=== PATIENT | female | born 1990 | race Two or more races ===

== ENCOUNTER 2020-06-21 19:49 | Emergency (ER) | payer OTHER ==
[~2020-06-21] VITALS: Ht 149.9 cm; Wt 65.8 kg
[2020-06-21 19:50] VITALS: BP 113/61
[2020-06-21 20:31] LABS: Urine Bacteria FEW /hpf (None Seen); Urine Blood Negative /uL (Negative); Urine Mucus FEW (None Seen); Urine Specific Gravity 1.029 (1.001-1.035); Urine WBC 10 /hpf (0 - 5)
== END 2020-06-21 22:16 | disposition left against medical advice (07) ==
LOC: ER 19:49
DX: R10.2 Pelvic and perineal pain (principal); Z53.21 Procedure and treatment not carried out due to patient leaving prior to being seen by health care provider
CPT/HCPCS: 81001; 81025

== ENCOUNTER 2020-07-15 00:44 | Inpatient (IN) | payer OTHER ==
[~2020-07-15] VITALS: Ht 149.9 cm; Wt 71.1 kg
[2020-07-15 01:38] LABS: Basophils # (auto) 0 10 ^3/uL (0-0.2); Basophils % (auto) 0.1 % (0.0-2.0); Eosinophils # (auto) 0 10 ^3/uL (0-0.8); Eosinophils % (auto) 0.1 % (0.0-7.0); Hematocrit 40.6 % (36.0-46.0); Hemoglobin 13.2 g/dL (12.2-16.2); Lymphocytes # (auto) 1.3 10 ^3/uL (0.4-5.4); Lymphocytes % (auto) 8.6 % (10.0-50.0); Mean Corpuscular Hemoglobin 27.7 pg (28.0-32.0); Mean Corpuscular Hgb Conc. 32.6 g/dL (32.0-36.0); Mean Corpuscular Volume 84.9 fL (80.0-100.0); Monocytes # (auto) 0.5 10 ^3/uL (0-1.3); Monocytes % (auto) 3.4 % (0.0-12.0); Neutrophils # (auto) 13.7 10 ^3/uL (1.6-8.6); Neutrophils % (auto) 87.8 % (37.0-80.0); Nucleated Red Blood Cells % 0.1 %; Platelet Count (auto) 244 10^3/uL (140-450); Red Blood Cells 4.78 10^6/uL (4.0-5.20); Red Cell Distribution Width 15.5 % (11.8-14.3); White Blood Cell 15.6 10^3/uL (4.4-10.8)
[2020-07-15 01:56] LABS: Albumin 3.9 g/dL (3.4-5.0); BUN/Creatinine Ratio 19.6; Calcium 8.7 mg/dL (8.5-10.1); Potassium 3.8 mmol/L (3.5-5.1)
[2020-07-15 01:59] LABS: Bilirubin, Total 0.4 mg/dL (0.2-1.0); Total Protein 7.5 g/dL (6.4-8.2)
[2020-07-15 02:06] LABS: Urine Bacteria NONE SEEN /hpf (None Seen); Urine Blood 3+ /uL (Negative); Urine Mucus FEW (None Seen); Urine Specific Gravity 1.028 (1.001-1.035); Urine WBC 18 /hpf (0 - 5)
[2020-07-15] MEDS ORDERED: HYDROcodone-ACET 7.5/325MG TAB PO ONE (04:15)
[2020-07-15 07:38] LABS: INR 1.05 (0.9-1.15); Partial Thromboplastin Time 28.8 sec (23.0-31.2)
[2020-07-15] MEDS ORDERED: ceFAZolin 1GM/50ML 50 ML IV ONE (12:05)
[2020-07-15] MEDS ORDERED: MEPERIDINE HCL (50 MG/ML) 1 ML VIAL ONE (13:11)
[2020-07-15] MEDS ORDERED: fentaNYL CITRATE 100 MCG/2 ML VL ONE ×2 (13:11→14:24)
[2020-07-15] MEDS ORDERED: MIDAZOLAM HCL 1MG/1ML-2 ML VIAL ONE (13:11)
[2020-07-15] MEDS ORDERED: MORPHINE SULFATE 4 MG/ML SYR/VIAL IV PRN (13:45)
[2020-07-15] MEDS ORDERED: LABETALOL HCL 5 MG/ML 4ML SYRINGE IV PRN (13:45)
[2020-07-15] MEDS ORDERED: PROPOFOL 10 MG/ML 20 ML IV ONE (13:45)
[2020-07-15] MEDS ORDERED: ONDANSETRON HCL 4 MG/2 ML VIAL ONE (13:45)
[2020-07-15] MEDS ORDERED: KETOROLAC TROMETH 30 MG/ML 1ML VIAL IV ONE (13:45)
[2020-07-15] MEDS ORDERED: DexAMETHasone SOD PHOS 10MG/1ML VIAL INJ ONE (13:45)
[2020-07-15] MEDS ORDERED: ePHEDrine SULFATE 50 MG/ML AMP IV PRN (13:45)
[2020-07-15] MEDS ORDERED: ONDANSETRON HCL 4 MG/2 ML VIAL IV PRN (13:45)
[2020-07-15] MEDS ORDERED: MIDAZOLAM HCL 1MG/1ML-2 ML VIAL IV PRN (13:45)
[2020-07-15] MEDS: LACTATED RINGER'S 1,000 ML IV SCH (15:00)
[2020-07-15] MEDS ORDERED: KETOROLAC TROMETH 30 MG/ML 1ML VIAL IV PRN (15:00)
[2020-07-15] MEDS: HYDROmorphone HCL 2 MG/ML VL IV PRN ×3 (15:12→20:04)
[2020-07-15 16:40] VITALS: BP 110/72
[2020-07-15 19:27] VITALS: BP 110/72
[2020-07-15 22:00] VITALS: BP 105/65
[2020-07-15] MEDS: ONDANSETRON HCL 4 MG/2 ML VIAL IV PRN (22:25)
[2020-07-16] MEDS: LACTATED RINGER'S 1,000 ML IV SCH ×2 (02:00→07:19)
[2020-07-16 04:04] LABS: Basophils # (auto) 0 10 ^3/uL (0-0.2); Basophils % (auto) 0.1 % (0.0-2.0); Eosinophils # (auto) 0 10 ^3/uL (0-0.8); Hematocrit 38.5 % (36.0-46.0); Hemoglobin 12.6 g/dL (12.2-16.2); Lymphocytes # (auto) 0.9 10 ^3/uL (0.4-5.4); Lymphocytes % (auto) 8.1 % (10.0-50.0); Mean Corpuscular Hemoglobin 27.9 pg (28.0-32.0); Mean Corpuscular Hgb Conc. 32.7 g/dL (32.0-36.0); Mean Corpuscular Volume 85.3 fL (80.0-100.0); Monocytes # (auto) 0.2 10 ^3/uL (0-1.3); Monocytes % (auto) 1.8 % (0.0-12.0); Neutrophils # (auto) 9.9 10 ^3/uL (1.6-8.6); Nucleated Red Blood Cells % 0.1 %; Platelet Count (auto) 220 10^3/uL (140-450); Red Blood Cells 4.52 10^6/uL (4.0-5.20)
[2020-07-16] MEDS: ONDANSETRON HCL 4 MG/2 ML VIAL IV PRN (04:30)
[2020-07-16] MEDS: HYDROmorphone HCL 2 MG/ML VL IV PRN (04:30)
[2020-07-16 05:00] VITALS: BP 109/67
[2020-07-16 09:00] VITALS: BP 122/73
[2020-07-16 12:19] VITALS: BP 122/73
[2020-07-16 12:30] VITALS: BP 113/67
== END 2020-07-16 12:48 | disposition home or self-care (01) | DRG 545 ==
LOC: ER 00:44 → OVERFLOW 14:57 → WEST WING 16:40
PROVIDERS: ADMIT Specialist; ATTEND Specialist
PROC: 0UT54ZZ Resection of Right Fallopian Tube, Percutaneous Endoscopic Approach (ICD-10-PCS; principal; 2020-07-15 13:16)
DX: O00.101 Right tubal pregnancy without intrauterine pregnancy (principal); N93.9 Abnormal uterine and vaginal bleeding, unspecified; Z20.822 Contact with and (suspected) exposure to COVID-19
CPT/HCPCS: 36415; 76801; 76817; 80053; 81001; 84702; 85025; 85610; 85730; 86850; 86900; 86901; 87426; G0378; J0690; J1100; J1885; J2250; J2405; J2704

== ENCOUNTER 2022-07-18 09:31 | Inpatient (IN) | payer MEDICAID, OTHER ==
[~2022-07-18] VITALS: Ht 165.1 cm; Wt 79.5 kg
[2022-07-18 09:56] LABS: Basophils # (auto) 0.1 10 ^3/uL (0-0.2); Basophils % (auto) 0.5 % (0.0-2.0); Eosinophils # (auto) 0 10 ^3/uL (0-0.8); Eosinophils % (auto) 0.2 % (0.0-7.0); Hematocrit 44.2 % (36.0-46.0); Hemoglobin 14.9 g/dL (12.2-16.2); Lymphocytes # (auto) 2.3 10 ^3/uL (0.4-5.4); Lymphocytes % (auto) 11.7 % (10.0-50.0); Mean Corpuscular Hemoglobin 29.1 pg (28.0-32.0); Mean Corpuscular Hgb Conc. 33.7 g/dL (32.0-36.0); Mean Corpuscular Volume 86.5 fL (80.0-100.0); Monocytes # (auto) 1.1 10 ^3/uL (0-1.3); Monocytes % (auto) 5.7 % (0.0-12.0); Neutrophils # (auto) 16.2 10 ^3/uL (1.6-8.6); Neutrophils % (auto) 81.9 % (37.0-80.0); Nucleated Red Blood Cells % 0.1 %; Red Blood Cells 5.12 10^6/uL (4.0-5.20); Red Cell Distribution Width 13.7 % (11.8-14.3); White Blood Cell 19.8 10^3/uL (4.4-10.8)
[2022-07-18 10:40] LABS: Albumin 3.8 g/dL (3.4-5.0); Calcium 8.6 mg/dL (8.5-10.1); Potassium 3.7 mmol/L (3.5-5.1)
[2022-07-18 10:45] LABS: BUN/Creatinine Ratio 12.5 (10.0-20.0); Bilirubin, Total 0.6 mg/dL (0.2-1.0); Total Protein 8.3 g/dL (6.4-8.2)
[2022-07-18 11:16] LABS: Urine Bacteria NONE SEEN /hpf (None Seen); Urine Blood 2+ /uL (Negative); Urine Mucus MANY (None Seen); Urine Specific Gravity 1.023 (1.001-1.035); Urine WBC 6 /hpf (0 - 5)
[2022-07-18 11:20] LABS: Alcohol, Urine < 3.0 mg/dL (0-10); Amphetamine Screen, Urine NEGATIVE (NEGATIVE); Barbiturate Scree,Urine NEGATIVE (NEGATIVE); Benzodiazephine Screen, Urine POSITIVE (NEGATIVE); Cannabinoid Screen, Urine POSITIVE (NEGATIVE); Cocaine Screen, Urine NEGATIVE (NEGATIVE); Phencyclidine Screen, Urine NEGATIVE (NEGATIVE)
[2022-07-18 11:28] LABS: Opiate Scree,Urine NEGATIVE (NEGATIVE)
[2022-07-18] MEDS ORDERED: traMADol HCL 50 MG TAB PO ONE (13:30)
[2022-07-18] MEDS ORDERED: SODIUM CHLORIDE 0.9% 1,000 ML IVB ONE (13:45)
[2022-07-18] MEDS ORDERED: ONDANSETRON HCL 4 MG/2 ML VIAL IV ONE (13:45)
[2022-07-18] MEDS ORDERED: MORPHINE SULFATE 4 MG/ML SYR/VIAL IV ONE (13:45)
[2022-07-18] MEDS ORDERED: PANTOPRAZOLE 40 MG/10 ML VIAL INJ IV ONE (13:45)
[2022-07-18] MEDS ORDERED: HYDROmorphone HCL 2 MG/ML VL/or syr IV ONE (14:45)
[2022-07-18] MEDS ORDERED: cefTRIAXone 1GM/50ML D5W 50 ML IV ONE (15:00)
[2022-07-18] MEDS ORDERED: HYDROcodone-ACET 5/325MG TAB PO PRN (15:30)
[2022-07-18] MEDS ORDERED: ACETAMINOPHEN 325 MG TAB PO PRN (15:30)
[2022-07-18] MEDS: metroNIDAZOLE 500MG/100ML 100 ML IV SCH ×2 (15:39→22:47)
[2022-07-18 15:47] LABS: Cholesterol 116 mg/dL (< 200)
[2022-07-18 15:49] LABS: INR 1.07 (0.9-1.15); Partial Thromboplastin Time 29.3 sec (24.6-33.4)
[2022-07-18 15:50] LABS: HDL Cholesterol 47 mg/dL (40-59); LDL Cholesterol 66 mg/dL (< 100); Triglycerides 46 mg/dL (< 150)
[2022-07-18] MEDS ORDERED: SODIUM CHLORIDE 0.9% 1,000 ML IV ONE (16:00)
[2022-07-18] MEDS: SODIUM CHLORIDE 0.9% 1,000 ML IV SCH ×2 (17:17→23:00)
[2022-07-18] MEDS: ONDANSETRON HCL 4 MG/2 ML VIAL IV PRN (22:51)
[2022-07-18] MEDS: MORPHINE SULFATE INJ 2 MG/ml SYRG IV PRN (22:51)
[2022-07-19 03:00] VITALS: BP 140/76
[2022-07-19] MEDS: SODIUM CHLORIDE 0.9% 1,000 ML IV SCH ×2 (03:59→15:14)
[2022-07-19 05:00] VITALS: BP 101/56
[2022-07-19] MEDS: metroNIDAZOLE 500MG/100ML 100 ML IV SCH ×3 (05:10→22:02)
[2022-07-19 06:10] LABS: Basophils # (auto) 0 10 ^3/uL (0-0.2); Basophils % (auto) 0.2 % (0.0-2.0); Eosinophils # (auto) 0 10 ^3/uL (0-0.8); Eosinophils % (auto) 0.2 % (0.0-7.0); Hematocrit 35.2 % (36.0-46.0); Hemoglobin 11.7 g/dL (12.2-16.2); Lymphocytes # (auto) 2.5 10 ^3/uL (0.4-5.4); Lymphocytes % (auto) 16.7 % (10.0-50.0); Mean Corpuscular Hemoglobin 28.8 pg (28.0-32.0); Mean Corpuscular Hgb Conc. 33.2 g/dL (32.0-36.0); Mean Corpuscular Volume 86.7 fL (80.0-100.0); Monocytes % (auto) 6.7 % (0.0-12.0); Neutrophils # (auto) 11.6 10 ^3/uL (1.6-8.6); Neutrophils % (auto) 76.2 % (37.0-80.0); Nucleated Red Blood Cells % 0.1 %; Red Blood Cells 4.06 10^6/uL (4.0-5.20); Red Cell Distribution Width 13.8 % (11.8-14.3); White Blood Cell 15.2 10^3/uL (4.4-10.8)
[2022-07-19 06:25] LABS: BUN/Creatinine Ratio 15.6 (10.0-20.0); Calcium 8.2 mg/dL (8.5-10.1); Potassium 3.9 mmol/L (3.5-5.1)
[2022-07-19 08:32] VITALS: BP 105/63
[2022-07-19] MEDS: ONDANSETRON HCL 4 MG/2 ML VIAL IV PRN ×2 (09:15→20:21)
[2022-07-19] MEDS: PANTOPRAZOLE 40 MG/10 ML VIAL INJ IV SCH (09:15)
[2022-07-19] MEDS: cefTRIAXone 1GM/50ML D5W 50 ML IV SCH (09:15)
[2022-07-19] MEDS: MORPHINE SULFATE INJ 2 MG/ml SYRG IV PRN ×2 (09:17→20:22)
[2022-07-19] MEDS ORDERED: LIDOCAINE W/ EPINEPHRINE 1% 20ML VIAL ONE (11:23)
[2022-07-19] MEDS ORDERED: BUPIVACAINE 0.25% INJ 50ML VIAL ONE (11:23)
[2022-07-19] MEDS ORDERED: LIDOCAINE 2% JELLY 11ml (GLYDO) ONE (11:40)
[2022-07-19] MEDS ORDERED: ONDANSETRON HCL 4 MG/2 ML VIAL ONE (11:42)
[2022-07-19] MEDS ORDERED: DexAMETHasone SOD PHOS 10MG/1ML VIAL INJ ONE (11:42)
[2022-07-19] MEDS ORDERED: ROCURONIUM 10MG/ML 10ML VIAL IV ONE (11:42)
[2022-07-19] MEDS ORDERED: KETOROLAC TROMETH 30 MG/ML 1ML VIAL ONE (11:42)
[2022-07-19] MEDS ORDERED: GLYCOPYRROLATE 0.2 MG/ML 1ML VIAL ONE (11:42)
[2022-07-19] MEDS ORDERED: PROPOFOL 10 MG/ML 20 ML IV ONE (11:42)
[2022-07-19] MEDS ORDERED: LIDOCAINE 2% (LOCAL ANESTH.) PF 5ml SDV ONE (11:42)
[2022-07-19] MEDS ORDERED: fentaNYL CITRATE 100 MCG/2 ML VL ONE (11:43)
[2022-07-19] MEDS ORDERED: SUGAMMADEX 200mg/2ml Vial (100MG/ML) IV ONE (11:43)
[2022-07-19] MEDS ORDERED: PHENYLEPHRINE HCL 10 MG/ML VL IV ONE (11:50)
[2022-07-19] MEDS ORDERED: fentaNYL CITRATE 100 MCG/2 ML VL IV PRN (13:30)
[2022-07-19] MEDS ORDERED: ePHEDrine SULFATE 50 MG/ML AMP IV PRN (13:30)
[2022-07-19] MEDS ORDERED: ONDANSETRON HCL 4 MG/2 ML VIAL IV PRN (13:30)
[2022-07-19] MEDS ORDERED: FLUMAZENIL 0.1 MG/ML INJ 10ML MDV IV PRN (13:30)
[2022-07-19] MEDS ORDERED: NALOXONE HCL 0.4 MG/ML VIAL IV PRN (13:30)
[2022-07-19] MEDS ORDERED: LABETALOL HCL 5 MG/ML 4ML SYRINGE IV PRN (13:30)
[2022-07-19] MEDS ORDERED: hydrALAZINE HCL 20 MG/ML VL IV PRN (13:30)
[2022-07-19] MEDS: HYDROmorphone HCL 2 MG/ML VL/or syr IV PRN ×2 (13:47→13:59)
[2022-07-19 16:41] VITALS: BP 117/67
[2022-07-19 22:00] VITALS: BP 110/77
[2022-07-19] MEDS: oxyCODONE HCL 5MG TAB PO PRN (22:03)
[2022-07-20] MEDS: MORPHINE SULFATE INJ 2 MG/ml SYRG IV PRN (04:34)
[2022-07-20] MEDS: metroNIDAZOLE 500MG/100ML 100 ML IV SCH ×2 (04:35→13:30)
[2022-07-20] MEDS: ONDANSETRON HCL 4 MG/2 ML VIAL IV PRN ×2 (04:35→08:58)
[2022-07-20 05:00] VITALS: BP 102/60
[2022-07-20 06:30] LABS: Basophils # (auto) 0 10 ^3/uL (0-0.2); Basophils % (auto) 0.1 % (0.0-2.0); Eosinophils # (auto) 0 10 ^3/uL (0-0.8); Lymphocytes # (auto) 1.1 10 ^3/uL (0.4-5.4); Lymphocytes % (auto) 7.9 % (10.0-50.0); Mean Corpuscular Hemoglobin 29.2 pg (28.0-32.0); Mean Corpuscular Hgb Conc. 33.2 g/dL (32.0-36.0); Mean Corpuscular Volume 88.2 fL (80.0-100.0); Monocytes # (auto) 0.6 10 ^3/uL (0-1.3); Monocytes % (auto) 4.8 % (0.0-12.0); Neutrophils # (auto) 11.7 10 ^3/uL (1.6-8.6); Neutrophils % (auto) 87.2 % (37.0-80.0); Red Blood Cells 4.09 10^6/uL (4.0-5.20); Red Cell Distribution Width 13.9 % (11.8-14.3); White Blood Cell 13.4 10^3/uL (4.4-10.8)
[2022-07-20] MEDS: SODIUM CHLORIDE 0.9% 1,000 ML IV SCH (08:46)
[2022-07-20] MEDS: PANTOPRAZOLE 40 MG/10 ML VIAL INJ IV SCH (08:58)
[2022-07-20] MEDS: cefTRIAXone 1GM/50ML D5W 50 ML IV SCH (08:58)
[2022-07-20] MEDS: oxyCODONE HCL 5MG TAB PO PRN (08:59)
[2022-07-20 09:00] VITALS: BP 108/63
[2022-07-20] MEDS ORDERED: CEPH250C PO (11:28)
[2022-07-20 13:00] VITALS: BP 123/74
[2022-07-20] MEDS ORDERED: NAP500T PO (14:55)
== END 2022-07-20 16:05 | disposition home or self-care (01) | DRG 710 ==
LOC: ER 09:31 → OVERFLOW 15:28 → WEST WING 22:10
PROVIDERS: ADMIT Registered Nurse; ATTEND Internal Medicine
PROC: 0FT44ZZ Resection of Gallbladder, Percutaneous Endoscopic Approach (ICD-10-PCS; principal; 2022-07-19 11:57)
DX: A41.9 Sepsis, unspecified organism (principal); K80.00 Calculus of gallbladder with acute cholecystitis without obstruction; K76.0 Fatty (change of) liver, not elsewhere classified; E66.9 Obesity, unspecified; K92.2 Gastrointestinal hemorrhage, unspecified; Z20.822 Contact with and (suspected) exposure to COVID-19; Z80.3 Family history of malignant neoplasm of breast; Z83.3 Family history of diabetes mellitus; Z68.29 Body mass index [BMI] 29.0-29.9, adult
CPT/HCPCS: 36415; 74176; 76705; 80048; 80053; 80061; 80307; 81001; 81025; 82247; 83036; 83690; 85025; 85610; 85730; 86850; 86900; 86901; 87040; 87086; 87426; 96361; 96374; 96375; C9113; G0378; J0696; J1100; J1885; J2001; J2405; J2704; J3490

== ENCOUNTER 2023-02-11 12:11 | Emergency (ER) | payer OTHER ==
[~2023-02-11] VITALS: Ht 149.9 cm; Wt 69.7 kg
[~2023-02-11 12:11] MED LIST: CEPH250C PO; NAP500T PO
[2023-02-11 12:58] VITALS: BP 116/78; PULSE 81; RESP 16; TEMP 98.1; O2SAT 96
[2023-02-11] MEDS ORDERED: AMOX875T3 PO (13:59)
[2023-02-11] MEDS ORDERED: PROM1SOL4 PO (13:59)
[2023-02-11] MEDS ORDERED: TOB03OS OP (13:59)
== END 2023-02-11 14:18 | disposition home or self-care (01) ==
LOC: ER 12:11
DX: H66.92 Otitis media, unspecified, left ear (principal); H10.33 Unspecified acute conjunctivitis, bilateral; J20.9 Acute bronchitis, unspecified; Z98.890 Other specified postprocedural states; Z79.899 Other long term (current) drug therapy

== ENCOUNTER 2023-02-24 12:10 | Emergency (ER) | payer OTHER ==
[~2023-02-24] VITALS: Ht 149.9 cm; Wt 72.5 kg
[~2023-02-24 12:10] MED LIST changes: +AMOX875T3 PO; +PROM1SOL4 PO; +TOB03OS OP
[2023-02-24] MEDS ORDERED: FLUORESCEIN SOD OPTH TEST STRIP LEFTEYE ONE (14:15)
[2023-02-24] MEDS ORDERED: FLUORESCEIN SOD OPTH TEST STRIP ONE (14:16)
[2023-02-24] MEDS ORDERED: TETRACAINE HCL 0.5% OPTH(EYE) SOLN 4ML LEFTEYE ONE (14:45)
[2023-02-24 16:00] VITALS: TEMP 98.8
[2023-02-24 16:06] VITALS: PULSE 74; RESP 14; O2SAT 100
[2023-02-24 18:00] VITALS: BP 120/67; PULSE 80; RESP 14; O2SAT 99
== END 2023-02-24 19:02 | disposition left against medical advice (07) ==
LOC: ER 12:10
DX: G43.909 Migraine, unspecified, not intractable, without status migrainosus (principal); H57.02 Anisocoria; S05.02XA Injury of conjunctiva and corneal abrasion without foreign body, left eye, initial encounter; X58.XXXA Exposure to other specified factors, initial encounter; Y93.89 Activity, other specified; Y92.89 Other specified places as the place of occurrence of the external cause; Y99.8 Other external cause status
CPT/HCPCS: 70450; 71046

== ENCOUNTER 2023-11-20 01:27 | Emergency (ER) | payer OTHER ==
[~2023-11-20] VITALS: Ht 149.9 cm; Wt 75.0 kg
[2023-11-20 01:33] VITALS: BP 135/94; PULSE 115; RESP 20; TEMP 98.7; O2SAT 98
[2023-11-20] MEDS: KETOROLAC TROMETH 60MG/2ML VIAL IM ONE (02:55)
[2023-11-20] MEDS: CYCLOBENZAPRINE HCL 10 MG TAB PO ONE (02:55)
[2023-11-20] MEDS ORDERED: METH-1181 PO (03:53)
[2023-11-20] MEDS ORDERED: IBUP-1456 PO (03:53)
== END 2023-11-20 04:43 | disposition home or self-care (01) ==
LOC: EDBD 01:27 → ER 01:27
DX: S43.402A Unspecified sprain of left shoulder joint, initial encounter (principal); Z79.899 Other long term (current) drug therapy; Z98.890 Other specified postprocedural states; V89.2XXA Person injured in unspecified motor-vehicle accident, traffic, initial encounter; Y93.89 Activity, other specified; Y92.89 Other specified places as the place of occurrence of the external cause; Y99.8 Other external cause status
CPT/HCPCS: 73030; 96372; 99283; J1885